=== PATIENT | male | born 1985 | race African-American/Black ===

== ENCOUNTER 2017-06-17 07:28 | Observation (INO) | payer SELFPAY ==
[2017-06-17] MEDS ORDERED: ONDANSETRON HCL INJ/PF 4 MG/2 ML SDV IV ONE (08:20)
[2017-06-17] MEDS ORDERED: KETOROLAC TROMETHAMINE INJ/PF 30 MG/1 ML SDV IV ONE (08:20)
[2017-06-17] MEDS ORDERED: DEXAMETHASONE SOD PHOS INJ 10 MG/1 ML VIAL IM ONE (08:20)
[2017-06-17] MEDS ORDERED: MORPHINE SULFATE 10 MG/ML INJ IV ONE (08:20)
[2017-06-17] MEDS ORDERED: NORMAL SALINE 1000 ML 1,000 ML IV ONE (08:21)
[2017-06-17] MEDS ORDERED: DEXAMETHASONE SOD PHOS INJ 10 MG/1 ML VIAL IV ONE (08:26)
--- NOTE | 2017-06-17 08:42 | ER Document Report ---
ED ENT - General Chief Complaint: Sore Throat Stated Complaint: SORE THROAT Time Seen by Provider: 06/17/17 07:49 Mode of Arrival: Ambulatory Information source: Patient TRAVEL OUTSIDE OF THE [place] IN LAST 30 DAYS: No - HPI Patient complains to provider of: Throat problem Onset: Other - 2 days Notes: Patient is here with complaints of sore throat. He has had a sore throat for approximately 2 days now. He was seen here 2 days ago had a negative rapid strep negative throat culture and was given Decadron. States that his pain seems to be getting worse. Is located more on the left side of his throat than the right. He is able to swallow, but has difficulty swallowing due to pain. He denies any difficulty breathing. He denies any nausea, vomiting, diarrhea. States that he has not been eating or drinking much due to his pain. He has had mild cough and congestion associated with this. He denies any chest pain or shortness of breath. He denies any chronic medical problems. He denies any recent oral sex. He denies any rashes. No headache or blurred vision. No neck stiffness. No abdominal pain. Takes no daily medications. No fever. He denies any other complaints at this time. - Related Data Allergies/Adverse Reactions: No Known Allergies Allergy (Verified 06/17/17 07:30) Home Medications: states no at home meds Past Medical History - Social History Smoking Status: Current Every Day Smoker Frequency of alcohol use: None Drug Abuse: None Family History: Reviewed & Not Pertinent Patient has suicidal ideation: No Patient has homicidal ideation: No Renal/ Medical History: Denies: Hx Peritoneal Dialysis Review of Systems - Review of Systems -: Yes All other systems reviewed and negative Physical Exam - Vital signs Vitals: Temp Pulse Resp BP Pulse Ox 98.2 F 92 18 143/83 H 99 06/17/17 07:34 06/17/17 07:34 06/17/17 07:34 06/17/17 07:34 06/17/17 07:34 - Notes Notes: GENERAL: alert, cooperative, nontoxic, no distress. HEAD: normocephalic, atraumatic EYES: conjunctiva pink without discharge, no external redness or swelling. EARS: no external swelling, no external redness NOSE: atraumatic, no external swelling MOUTH/THROAT: mucous membranes moist and pink, posterior pharynx with mild erythema. Left tonsillar swelling and erythema. No exudate. Slightly muffled voice. No trismus or drooling. Uvula is midline. No stridor. NECK: soft, supple, full range of motion, no meningismus. Mild anterior cervical lymphadenopathy. No swelling. CHEST: no distress, lungs clear and equal throughout. No wheezing, rales, rhonchi. CARDIAC: regular rate and rhythm, no murmur, normal capillary refill, normal pulses. No peripheral edema noted. ABDOMEN: Soft, nontender. BACK: full range of motion, no CVA tenderness. EXTREMITIES: full range of motion of all extremities. No redness, no swelling. NEURO: alert and oriented x 3, no focal deficits, full range of motion of all extremities. PYSCH: appropriate mood, affect. Patient is cooperative. SKIN: pink, warm, dry, no rash. Course - Re-evaluation Re-evalutation: 06/17/17 11:22 Patient has stable vitals and is here with complaints of left-sided sore throat. He was here 2 days ago and had a negative strep, he was given steroids but his symptoms have worsened. On exam he is noted to have swelling to the left tonsil with no exudate. He has have a muffled voice. Airway is patent. No stridor. No drooling. He is noted to have a white blood cell count of 12. CT of the soft tissue of the neck with IV contrast shows a left sided tonsillar cellulitis with no drainable abscess. Patient was given IV steroids antibiotics and fluids here in the emergency department. Continues to have some moderate pain. This point the patient will be admitted to the hospital for further evaluation and management of his left-sided peritonsillar cellulitis. - Vital Signs Vital signs: Temp Pulse Resp BP Pulse Ox 98.2 F 92 18 143/83 H 99 06/17/17 07:34 06/17/17 07:34 06/17/17 07:34 06/17/17 07:34 06/17/17 07:34 - Laboratory Result Diagrams: 06/17/17 08:43 06/17/17 08:43 Laboratory results interpreted by me: 06/17/17 06/17/17 08:43 08:43 WBC 12.3 H Hgb 13.0 L RDW 14.8 H Carbon Dioxide 34 H - Diagnostic Test Radiology reviewed: Image reviewed, Reports reviewed - CT soft tissue the neck shows left-sided tonsillar and peritonsillar cellulitis with no drainable fluid collection per the radiologist Discharge - Discharge Clinical Impression: Peritonsillar cellulitis Condition: Stable Disposition: ADMITTED OBSERVATION Admitting Provider: Hospitalist Unit Admitted: Medical Floor
[2017-06-17 09:12] LABS: ABSOLUTE BASOPHILS # (AUTO) 0.1 10^3/uL (0.0-0.2); ABSOLUTE EOSINOPHILS # (AUTO) 0.3 10^3/uL (0.0-0.6); ABSOLUTE LYMPHOCYTES (AUTO) 4.1 10^3/uL (0.5-4.7); ABSOLUTE MONOCYTES (AUTO) 1.4 10^3/uL (0.1-1.4); ABSOLUTE NEUT (AUTO) 6.5 10^3/uL (1.7-8.2); BASOPHILS % (AUTO) 0.4 % (0-2); EOSINOPHILS % (AUTO) 2.1 % (0-6); HEMATOCRIT 39.6 % (37.9-51.0); LYMPHOCYTES % (AUTO) 33.5 % (13-45); MEAN CORPUSCULAR HEMOGLOBIN 28.4 pg (27.0-33.4); MEAN CORPUSCULAR HGB CONC 32.8 g/dL (32.0-36.0); MEAN CORPUSCULAR VOLUME 87 fl (80-97); PLATELET COUNT 274 10^3/uL (150-450); RED BLOOD COUNT 4.58 10^6/uL (4.35-5.55); RED CELL DISTRIBUTION WIDTH 14.8 % (11.5-14.0); TOTAL CELLS COUNTED % (AUTO) 100 %; WHITE BLOOD COUNT 12.3 10^3/uL (4.0-10.5)
[2017-06-17 09:27] LABS: ALANINE AMINOTRANSFERASE 22 U/L (21-72); ALKALINE PHOSPHATASE 63 U/L (38-126); ANION GAP 7 (5-19); ASPARTATE AMINO TRANSFERASE 21 U/L (17-59); BILIRUBIN,DIRECT 0.2 mg/dL (0.0-0.4); BILIRUBIN,TOTAL 0.2 mg/dL (0.2-1.3); BLOOD UREA NITROGEN 11 mg/dL (7-20); CARBON DIOXIDE 34 mmol/L (22-30); CHLORIDE 102 mmol/L (98-107); GLUCOSE 98 mg/dL (75-110); POTASSIUM 3.7 mmol/L (3.6-5.0); SODIUM 143.4 mmol/L (137-145); TOTAL PROTEIN 7.1 g/dL (6.3-8.2)
[2017-06-17] MEDS ORDERED: CLINDAMYCIN 600 MG/D5W RTU 600 MG/50 ML RTUPB IV ONE (10:35)
--- NOTE | 2017-06-17 10:46 | RADIOLOGY REPORT (SQ) ---
EXAM DESCRIPTION: CT SOFT TISSUE NECK WITH COMPLETED DATE/TIME: 06/17/2017 9:56 am REASON FOR STUDY: soft, muffled voice , difficulty swallowing, left submandibular pain COMPARISON: None. TECHNIQUE: Post IV contrasted scanning from skull base through lung apices with review of bone, soft tissue and lung windows. Reconstructed coronal and sagittal MPR images reviewed. All images stored on PACS. All CT scanners at this facility use dose modulation, iterative reconstruction, and/or weight based d osing when appropriate to reduce radiation dose to as low as reasonably achievable (ALARA). [facility]: Dose Right [facility]: CareDose [facility]: Dose Right [facility]: Teradose 4D [facility]: [employer] TV CONTRAST TYPE AND DOSE: contrast/concentration: Isovue 370.00 mg/ml; Total Contrast Delivered: 75.0 ml; Total Saline Delivered: 49.0 ml RENAL FUNCTION: Creatinine 0.96 RADIATION DOSE: CT Rad equipment meets quality standard of care and radiation dose reduction techniq ues were employed. CTDIvol: 15.8 mGy. DLP: 527 mGy-cm. . LIMITATIONS: None. FINDINGS: There is asymmetric diffuse enlargement of the left pharyngeal tonsil which measures about 5.5 cm craniocaudad by 2.5 cm transverse by 2.5 cm AP. The left pharyngeal tonsil and parapharyngea l fat are heterogeneous in density without well-circumscribed intra tonsillar or peritonsillar absces s. There is about 50% narrowing of the oropharynx by the large tonsil. Right pharyngeal tonsil, parapharyngeal space are unremarkable. No prevertebral soft tissue swelling. These findings were discussed with Samuel Whittaker in the emergency room. SKULL BASE: Inferior brain parenchyma unremarkable MAJOR SALIVARY GLANDS: No solid or cystic masses. No inflammatory changes. LYMPHADENOPATHY: No adenopathy. MUCOSAL MASSES OR ASYMMETRY: As above LARYNX/CORDS: No abnormal findings. VASCULAR STRUCTURES: The major vessels are patent. LUNG APICES: Clear. BONES: Intact. THYROID: Normal size. No masses. PARANASAL SINUSES: Clear. OTHER: No other significant finding. IMPRESSION: Left-sided pharyngeal tonsillitis without intra tonsillar or peritonsillar abscess at th is time TECHNICAL DOCUMENTATION: JOB ID: [id number] Quality ID # [id number]: Final reports with documentation of one or more dose reduction techniques (e.g., Au tomated exposure control, adjustment of the mA and/or kV according to patient size, use of iterative reconstruction technique) 2010 [employer]- All Rights Reserved Reading location - IP/workstation name: [email or web address]
[2017-06-17 13:25] VITALS: BP 123/67
[2017-06-17] MEDS ORDERED: ACETAMINOPHEN 325 MG TABLET PO PRN (14:17)
[2017-06-17] MEDS ORDERED: LIDOCAINE 2% VISCOUS SOLN 20 ML UDCUP PO PRN (14:21)
--- NOTE | 2017-06-17 14:33 | PDOC H&P ---
History of Present Illness Admission Date/PCP: 06/17/17 11:37 Dr Nevarez in [facility] History of Present Illness: The patient is an extremely pleasant 32-year-old -[place] male who developed a severe sore throat 2-3 days ago. He is visiting the [facility] from [facility]. Throat culture 2 days ago he was seen in the emergency room and had a negative rapid strep culture performed. He was given some Decadron at that time and sent home. Unfortunately his pain has continued to worsen. It is located more on the left side of his throat than the right. He is able to swallow but is having a significant amount of pain. Initially this morning he was concerned that he may have difficulty breathing. He presented to the emergency room for further evaluation and treatment. In the emergency room there was concerns initially for a peritonsillar abscess. Throat culture obtained from his previous visit was positive for group A strep. He had a CT scan of the soft tissues of his neck which revealed left-sided pharyngeal tonsillitis without evidence of abscess. It was noted that there was about 50% narrowing of the oropharynx by the large tonsil. In the emergency room he was given 600 mg of IV clindamycin and 10 mg of IV dexamethasone. He was referred for admission. Of note the patient has no other medical problems and is on no medications as an outpatient. Past Medical History Medical History: None Cardiac Medical History: Reports: None Pulmonary Medical History: Reports: None EENT Medical History: Reports: None Neurological Medical History: Reports: None Endocrine Medical History: Reports: None Malignancy Medical History: Reports: None GI Medical History: Reports: None Musculoskeltal Medical History: Reports: None Skin Medical History: Reports: None Psychiatric Medical History: Reports: None Traumatic Medical History: Reports: None Hematology: Reports: None Infectious Medical History: Reports: None Past Surgical History Past Surgical History: Reports: None Social History Information Source: Patient Lives with: Alone Smoking Status: Current Every Day Smoker Frequency of Alcohol Use: None Hx Recreational Drug Use: No Hx Prescription Drug Abuse: No - Advance Directive Resuscitation Status: Full Code Family History Family History: Reviewed & Not Pertinent Parental Family History Reviewed: Yes Children Family History Reviewed: Yes Sibling(s) Family History Reviewed.: Yes Medication/Allergy Home Medications: No Home Medications 06/17/17 Allergies/Adverse Reactions: No Known Allergies Allergy (Verified 04/11/18 07:30) Review of Systems Constitutional: PRESENT: chills, fever(s) Eyes: ABSENT: visual disturbances Ears: ABSENT: hearing changes Nose, Mouth, and Throat: PRESENT: headache(s), sore throat - Quite severe Cardiovascular: ABSENT: chest pain, dyspnea on exertion, edema, orthropnea, palpitations Respiratory: ABSENT: cough, hemoptysis Gastrointestinal: ABSENT: abdominal pain, constipation, diarrhea, hematemesis, hematochezia, nausea, vomiting Genitourinary: ABSENT: dysuria, hematuria Musculoskeletal: ABSENT: joint swelling Integumentary: ABSENT: rash, wounds Neurological: ABSENT: abnormal gait, abnormal speech, confusion, dizziness, focal weakness, syncope Psychiatric: ABSENT: anxiety, depression, homidical ideation, suicidal ideation Endocrine: ABSENT: cold intolerance, heat intolerance, polydipsia, polyuria Hematologic/Lymphatic: ABSENT: easy bleeding, easy bruising Physical Exam Vital Signs: Temp Pulse Resp BP Pulse Ox 97.9 F 69 16 123/67 98 06/17/17 13:22 06/17/17 13:22 06/17/17 13:22 06/17/17 13:22 06/17/17 13:22 General appearance: PRESENT: no acute distress, well-developed, well-nourished, other - He appears to be having difficulty swallowing. He is in no acute distress but looks as if he does not feel well Head exam: PRESENT: atraumatic, normocephalic Eye exam: PRESENT: conjunctiva pink, EOMI, PERRLA. ABSENT: scleral icterus Mouth exam: PRESENT: moist Throat exam: PRESENT: post pharyngeal erythema, tonsillar erythema, tonsillogmegaly Neck exam: ABSENT: carotid bruit, JVD, lymphadenopathy, thyromegaly Respiratory exam: PRESENT: clear to auscultation rc. ABSENT: rales, rhonchi, wheezes Cardiovascular exam: PRESENT: RRR. ABSENT: diastolic murmur, rubs, systolic murmur Pulses: PRESENT: normal dorsalis pedis pul Vascular exam: PRESENT: normal capillary refill GI/Abdominal exam: PRESENT: normal bowel sounds, soft. ABSENT: distended, guarding, mass, organolmegaly, rebound, tenderness Rectal exam: PRESENT: deferred Extremities exam: PRESENT: full ROM. ABSENT: calf tenderness, clubbing, pedal edema Musculoskeletal exam: PRESENT: ambulatory Neurological exam: PRESENT: alert, awake, oriented to person, oriented to place , oriented to time, oriented to situation, CN II-XII grossly intact. ABSENT: motor sensory deficit Psychiatric exam: PRESENT: appropriate affect, normal mood. ABSENT: homicidal ideation, suicidal ideation Skin exam: PRESENT: dry, intact, warm. ABSENT: cyanosis, rash Results Impressions: Soft Tissue Neck CT 06/17/17 08:21 IMPRESSION: Left-sided pharyngeal tonsillitis without intra tonsillar or peritonsillar abscess at this time Assessment & Plan - Diagnosis (1) Peritonsillar cellulitis Is this a current diagnosis for this admission?: Yes Plan: Secondary to group a strep. The up-to-date literature was reviewed. The patient will be started on IV Unasyn. He has received 10 mg of IV dexamethasone in the literature I reviewed shows that a single dose of IV steroid should be sufficient. If he does not have relief further steroids could be given tomorrow. At this point he has no evidence of airway compromise. Hopefully he will feel better tomorrow and can be discharged home. (2) Tobacco use disorder, continuous Is this a current diagnosis for this admission?: Yes Plan: The patient is encouraged to not smoke (3) Full code status Is this a current diagnosis for this admission?: Yes - Time Time Spent: 50 to 70 Minutes - Inpatient Certification Medical Necessity: Other - The patient will be placed in observation in the hospital. I suspect that he will do well. The steroids will continue to work over the course of the day. If he is feeling better tomorrow he could likely be changed to an oral regimen to complete a course of antibiotic therapy. I expect his hospitalization will span less than 2 midnights.
[2017-06-17] MEDS ORDERED: AMPICILLIN SODIUM/SULBACTAM NA 3 GM in NORMAL SALINE 100 ML IV SCH (15:00)
--- NOTE | 2017-06-17 19:13 | Progress Note ---
Provider Note Provider Note: Date of discharge: 06/17/2017 The patient eloped from the hospital I admitted the patient to the hospital into observation status for parenteral antibiotics overnight for peritonsillar cellulitis caused by strep a infection. The nursing staff notified me that the patients room was found empty. His IV had been taken out in his hospital gown was on the bed. The patient was nowhere to be found. I did not see the patient at the time of discharge nor did I give him any antibiotic therapy. No charge for this discharge
== END 2017-06-17 17:35 | disposition left against medical advice (07) ==
LOC: ER 07:28 → EH 11:37 → 2N 14:05
PROVIDERS: ADMIT Family Medicine; ATTEND Family Medicine
DX: J36 Peritonsillar abscess (principal); B95.0 Streptococcus, group A, as the cause of diseases classified elsewhere; Z53.21 Procedure and treatment not carried out due to patient leaving prior to being seen by health care provider; F17.200 Nicotine dependence, unspecified, uncomplicated; R05 Cough; R51 Headache
CPT/HCPCS: 99285; 96361; 96375; 96365; 36415; 87040; 87070; 87880; 85025; 80053; 70491; J0295; J3490; J1885; J2270; J2405; J7030; J1100